=== PATIENT | male | born 2005 | race Caucasian/White ===

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

== ENCOUNTER 2024-05-15 21:44 | Observation (INO) | payer OTHER ==
[2024-05-15 21:48] VITALS: BMI 22.2
[2024-05-15] MEDS ORDERED: ACETAMINOPHEN INJECTION 100 ML ONE (22:41)
[2024-05-15] MEDS ORDERED: ONDANSETRON 4 MG/2 ML VIAL ONE (22:41)
[2024-05-15 22:45] LABS: HEMATOCRIT 48.2 % (40.1-51.0); HEMOGLOBIN 16.4 g/dL (13.7-17.5); MEAN PLT VOLUME 9.1 fl (9.4-12.4); PLATELET COUNT 252 x10^3/uL (163-337); RDW 11.4 % (12.0-15.6)
[2024-05-15] MEDS: ACETAMINOPHEN 1000 MG/100 ML BAG IVPB ONE (22:46)
[2024-05-15] MEDS: SODIUM CHLORIDE 0.9% 500 ML INFUS.BAG IV ONE ×2 (22:46→23:51)
[2024-05-15] MEDS: ONDANSETRON 4 MG/2 ML VIAL IVPUSH ONE (22:46)
[2024-05-15 22:54] LABS: POTASSIUM 4.4 mmol/L (3.5-5.1)
[2024-05-15 22:56] LABS: CALCIUM 9.1 mg/dL (8.5-10.1)
[2024-05-15 22:57] LABS: ALBUMIN 4.3 g/dl (3.4-5.0); BLOOD UREA NITROGEN 26.3 mg/dL (7-18)
[2024-05-15 23:00] LABS: CREATININE 1.3 mg/dL (0.55-1.3)
[2024-05-15 23:01] LABS: BILIRUBIN,TOTAL 1.2 mg/dL (0.2-1)
[2024-05-15 23:02] LABS: TOT PROT 7.8 g/dl (6.4-8.2)
[2024-05-16] MEDS ORDERED: ONDANSETRON 4 MG/2 ML VIAL IVPUSH PRN (00:28)
[2024-05-16] MEDS ORDERED: PIPERACILLIN/TAZOB 3.375 GM 3.375 GM/50 ML BAG IVPB ONE (01:13)
[2024-05-16] MEDS: PIPERACILLIN/TAZOB 3.375 GM 3.375 GM in DEXTROSE 5%-WATER - 50 ML IVPB ONE (01:20)
[2024-05-16 01:28] LABS: INR 1.42 (0.83-1.09); PROTHROMBIN TIME (PATIENT) 15.6 SEC (9.7-13.0)
[2024-05-16 01:30] LABS: PH,URINE 5.5 (5.0-8.0); URINE APPEARANCE Clear; URINE BILIRUBIN Negative (NEGATIVE); URINE COLOR Yellow; URINE GLUCOSE (UA) Negative (NEGATIVE); URINE KETONE Negative (NEGATIVE); URINE LEUK ESTERASE Negative (NEGATIVE); URINE NITRITE Negative (NEGATIVE); URINE PROTEIN Negative (NEGATIVE); URINE UROBILINOGEN 0.2 mg/dL (0.2-1.0)
[2024-05-16] MEDS: SODIUM CHLORIDE 1,000 ML IV SCH (02:19)
[2024-05-16] MEDS ORDERED: PIPERACILLIN/TAZOB 3.375 GM 3.375 GM in DEXTROSE 5%-WATER - 50 ML IVPB SCH (06:00)
[2024-05-16] MEDS: PIPERACILLIN/TAZOB 3.375 GM 3.375 GM in DEXTROSE 5%-WATER - 50 ML IVPB SCH (09:03)
[2024-05-16 09:38] LABS: ABSOLUTE IMMATURE GRANULOCYTES 0.02 x10^3/uL (0.0-0.031); BASOPHILS # 0.01 x10^3/uL (0.01-0.08); HEMATOCRIT 41.5 % (40.1-51.0); HEMOGLOBIN 14.2 g/dL (13.7-17.5); MCHC 34.2 g/dl (32.3-36.5); MEAN CELL VOLUME 87.2 fl (79.0-92.2); MEAN PLT VOLUME 9.3 fl (9.4-12.4); MONOCYTE # 0.42 x10^3/uL (0.30-0.82); MONOCYTE % 6.4 % (5.3-12.2); PLATELET COUNT 206 x10^3/uL (163-337); RDW 11.4 % (12.0-15.6)
[2024-05-16 09:52] LABS: POTASSIUM 3.5 mmol/L (3.5-5.1)
[2024-05-16 09:58] LABS: BLOOD UREA NITROGEN 18.8 mg/dL (7-18)
[2024-05-16 10:02] LABS: BILIRUBIN,TOTAL 1.6 mg/dL (0.2-1); TOT PROT 6.2 g/dl (6.4-8.2)
[2024-05-16 10:05] LABS: ALBUMIN 3.4 g/dl (3.4-5.0); CALCIUM 7.7 mg/dL (8.5-10.1)
[2024-05-16 11:19] LABS: ERYTHROCYTE SEDIMENTATION RATE 8 mm/hr (0-10)
[2024-05-16 12:22] LABS: HIV INTERPRETATION NEGATIVE (NEGATIVE)
[2024-05-16 16:40] LABS: BILIRUBIN,DIRECT 0.4 mg/dL (0.0-0.2)
[2024-05-16] MEDS: ACETAMINOPHEN 1000 MG/100 ML BAG IVPB ONE (19:47)
[2024-05-17] MEDS: SODIUM CHLORIDE 1,000 ML IV SCH (04:45)
[2024-05-17 08:27] LABS: HEMATOCRIT 40.8 % (40.1-51.0); HEMOGLOBIN 13.9 g/dL (13.7-17.5); MCHC 34.1 g/dl (32.3-36.5); MEAN CELL VOLUME 89.3 fl (79.0-92.2); MEAN PLT VOLUME 9.3 fl (9.4-12.4); PLATELET COUNT 174 x10^3/uL (163-337); RDW 11.6 % (12.0-15.6)
[2024-05-17 08:41] LABS: POTASSIUM 3.7 mmol/L (3.5-5.1)
[2024-05-17 08:55] LABS: CALCIUM 8.8 mg/dL (8.5-10.1)
[2024-05-17 08:56] LABS: ALBUMIN 3.3 g/dl (3.4-5.0); BLOOD UREA NITROGEN 12.2 mg/dL (7-18)
[2024-05-17 08:59] LABS: CREATININE 0.9 mg/dL (0.55-1.3)
[2024-05-17 09:01] LABS: BILIRUBIN,TOTAL 1.1 mg/dL (0.2-1); TOT PROT 6.4 g/dl (6.4-8.2)
[2024-05-17 09:07] VITALS: BP 112/64; PULSE 63; RESP 16; TEMP 97.9
== END 2024-05-17 10:05 | disposition home or self-care (01) ==
LOC: JER 21:44 → INTOOBSV 05-16 00:04 → JERBED 05-16 00:04 → UNDOADMOB 05-16 00:04 → JERBED 05-16 02:20 → J6S 05-16 02:20 → JERBED 05-16 15:12 → J6S 05-16 15:12
PROVIDERS: ADMIT Internal Medicine; ATTEND Internal Medicine
PROC: 3E033NZ Introduction of Analgesics, Hypnotics, Sedatives into Peripheral Vein, Percutaneous Approach (ICD-10-PCS; principal; 2024-05-16)
PROC: 3E033GC Introduction of Other Therapeutic Substance into Peripheral Vein, Percutaneous Approach (ICD-10-PCS; 2024-05-16)
PROC: 3E03329 Introduction of Other Anti-infective into Peripheral Vein, Percutaneous Approach (ICD-10-PCS; 2024-05-16)
PROC: 3E03329 Introduction of Other Anti-infective into Peripheral Vein, Percutaneous Approach (ICD-10-PCS; 2024-05-16)
PROC: 3E0337Z Introduction of Electrolytic and Water Balance Substance into Peripheral Vein, Percutaneous Approach (ICD-10-PCS; 2024-05-16)
DX: R10.32 Left lower quadrant pain (principal); R11.2 Nausea with vomiting, unspecified; R19.7 Diarrhea, unspecified
CPT/HCPCS: 0241U-QW; 36415; 74177-TC; 80053; 81003; 82248; 83690; 85025; 85610; 85651; 86140; 86850; 86900; 86901; 87389; 96361; 96365; 96366; 96375; 96376; 99285-25; G0378; J0131; Q9967

== ENCOUNTER 2024-10-20 11:17 | Emergency (ER) | payer OTHER ==
[2024-10-20 11:24] VITALS: BP 124/77; PULSE 83; RESP 18; TEMP 98.3; BMI 25.8
[2024-10-20] MEDS ORDERED: IBUPROFEN 600 MG TABLET (FP) PO ONE (12:16)
[2024-10-20] MEDS: IBUPROFEN 600 MG TABLET (FP) PO ONE (12:26)
== END 2024-10-20 13:36 | disposition home or self-care (01) ==
LOC: JERFT 11:17 → JER 11:17 → JERFT 13:36
PROC: 2W3RX1Z Immobilization of Left Lower Leg using Splint (ICD-10-PCS; principal; 2024-10-20)
DX: S92.102A Unspecified fracture of left talus, initial encounter for closed fracture (principal); X50.1XXA Overexertion from prolonged static or awkward postures, initial encounter; Y92.310 Basketball court as the place of occurrence of the external cause
CPT/HCPCS: 73610-TC-LT-FY; 73630-TC-LT; 99283-25